=== PATIENT | male | born 1985 ===

== ENCOUNTER 2017-04-05 14:33 | Emergency (ER) | payer BC ==
[2017-04-05 14:38] VITALS: O2SAT 100
--- NOTE | 2017-04-05 15:07 | C.PDOC ---
History Of Present Illness 32 yr old male presents to the ER with complaints of of mid sternal chest pain while at work earlier today. Patient states it felt like a tightness in the chest, lasting for few seconds but still hurts when he takes a deep breath. Patient reports of getting over a cold, was coughing for 10 days straight, non productive. Denies known family history of cardiac history, fever, chills, SOB, nausea, vomiting, weakness or numbness. Patient reports he is a social smoker. 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 Constitutional: Negative for: Fever, Chills Cardiovascular: Positive for: Chest Pain (midsternal) Respiratory: Negative for: Shortness of Breath Gastrointestinal: Negative for: Nausea, Vomiting Neurological: Negative for: Weakness, Numbness Physical Exam - Physical Exam Appears: Non-toxic, No Acute Distress Skin: Warm, Dry, No Rash Head: Atraumatic, Normacephalic Oral Mucosa: Moist Lips: Normal Appearing Chest: Symmetrical, Tenderness (midsternal chest tenderness) Cardiovascular: Rhythm Regular, No Murmur Respiratory: Normal Breath Sounds, No Rales, No Rhonchi, No Stridor, No Wheezing Extremity: Normal ROM, No Swelling Neurological/Psych: Oriented x3, Normal Speech, Normal Motor, Normal Sensation ED Course And Treatment ECG: Interpreted By Me, Viewed By Me ECG Rhythm: Sinus Rhythm Interpretation Of ECG: NSs at 74 bpm with normal axis and sinus arrhythmia no ST -T changes Rate From EC (BPM) O2 Sat by Pulse Oximetry: 100 (RA) Pulse Ox Interpretation: Normal - Radiology CXR: Viewed By Me, Read By Radiologist CXR Interpretation: Yes: No Acute Disease Medical Decision Making Medical Decision Making: PLAN: * CXR * EKG * Tylenol PO EKG obtained and reviewed. CXR shows no acute disease. Patient remained afebrile well and in no acute pain or respiratory distress. Patient has no significant PMH, stable vital signs and chest is reproducibly tender, very low suspicion for ACS. Recommend analgesics and to follow up with PCP or clinic. Patient stable for discharge Disposition Counseled Patient/Family Regarding: Diagnosis, Need For Followup - Disposition Referrals: 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 - Scribe Statement The provider has reviewed the documentation as recorded by the Scribe Gala Peck All medical record entries made by the Scribe were at my direction and personally dictated by me. I have reviewed the chart and agree that the record accurately reflects my personal performance of the history, physical exam, medical decision making, and the department course for this patient. I have also personally directed, reviewed, and agree with the discharge instructions and disposition. SOFIA Risk Score for UA/NSTEMI - SOFIA Risk Score Age > 64: NO 3 or more CAD Risk Factors: NO Known CAD (Stenosis greater than 50%): NO Aspirin use in past 7 days: NO Severe Angina: NO EKG ST changes greater than 0.5mm: NO SOFIA Score: 0 % risk at 14 days of: all cause mortality, new or recurrent VA, or severe recurrent ischemia requiring urgen revascularization: 5%
--- NOTE | 2017-04-05 15:18 | RAD ---
HISTORY: Cough, shortness of breath. COMPARISON: No prior. TECHNIQUE: Chest PA and lateral FINDINGS: LUNGS: No active pulmonary disease. PLEURA: No significant pleural effusion identified. No pneumothorax apparent. CARDIOVASCULAR: Normal. OSSEOUS STRUCTURES: No significant abnormalities. VISUALIZED UPPER ABDOMEN: Normal. OTHER FINDINGS: None. IMPRESSION: No active disease.
[2017-04-05 16:14] VITALS: BP 123/76; PULSE 75; RESP 18; TEMP 98.1
--- NOTE | 2017-04-06 22:12 | CARD ---
APPROVED REPORT EKG Measurement Heart [id number] <Conclusion> Sinus rhythm with marked sinus arrhythmia Otherwise normal ECG
== END 2017-04-05 15:55 | disposition home or self-care (01) ==
LOC: C.ER 14:33
DX: R07.1 Chest pain on breathing (principal)